=== PATIENT | male | born 1965 | race Caucasian/White ===

== ENCOUNTER → 2016-07-06 | Outpatient (CLI) | payer OTHER ==
[~2016-07-06] MED LIST: ADVIN25050 INH; ADVIN50050 INH; ALBINS NEB; AMLO-110 PO; ASPI1CHW26 PO; CHOLESTEROL MED; CMBIN INH; CZR50 PO; EPP3/2 IM; EZET10TA63 PO; FLX10 PO; HYDR-5688 PO; IPRA1AER2 INH; ISOS30TA3 PO; ISOS60TA25 PO; LISI-725 PO; METO100T44 PO; MOME50SP5 NAE; MOME6000 NAE; NTRGSL/4 UT; OPTIRAY 320 IV PRN; PARO10TA3 PO; PARO1TAB29 PO; PRED20TA2 PO; PREG100C PO; PREG1CAP36 PO; RIZA10TA18 PO; RNXER500 PO; ROSU20TA PO; SIMV20TA2 PO; SIMV80TA2 PO; SNG10 PO; TRAM-10 PO; doxycycline
--- NOTE | 2016-07-06 17:26 | DIAGNOSTIC IMAGING REPORT ---
CT PELVIS W/IV AND ORAL CONT (CT) CT DOSE: 1023.16 mGy.cm CLINICAL HISTORY: K40.90 Left inguinal [id number] Right groin [id number]. TECHNIQUE: The patient was scanned following administration of dilute oral contrast. The patient was scanned in a dynamic helical fashion during intravenous administration 119 cc Optiray 320. COMPARISON STUDY: Ultrasound study dated 06/06/2016 FINDINGS: There is no pathologic bowel dilatation. The inferior aspect of the abdominal aorta is nondilated. There is no evidence of pathologic bowel dilatation. There is no evidence of pathologic adenopathy. There is a tiny fat-containing umbilical hernia. There is no evidence of acute appendicitis. There are small bilateral fat-containing inguinal hernias right larger than left. IMPRESSION: 1. Small fat-containing umbilical hernia 2. Small fat-containing inguinal hernias right greater than left 3. No acute inflammatory changes. 4. No evidence of pathologic adenopathy Electronically signed by: Frank Forman M.D. 07/06/2016 5:24 PM Dictated Date/Time: 07/06/2016 5:21 PM
== END | disposition home or self-care (01) ==
LOC: C.CTS 16:44
PROVIDERS: ATTEND Surgery
DX: K40.90 Unilateral inguinal hernia, without obstruction or gangrene, not specified as recurrent (principal); R10.30 Lower abdominal pain, unspecified

== ENCOUNTER → 2016-08-02 | Outpatient (CLI) | payer OTHER ==
[~2016-08-02] MED LIST changes: -METO100T44 PO; +METO1TAB69 PO; -OPTIRAY 320 IV PRN
--- NOTE | 2016-08-02 14:18 | DIAGNOSTIC IMAGING REPORT ---
TWO VIEW CHEST CLINICAL HISTORY: Cough. FINDINGS: PA and lateral chest radiographs are compared to study dated 01/08/2012. Correlation is made with chest CT dated 09/13/2007. The examination is degraded by large body habitus. The heart is top normal for projection. The mediastinal contour is within normal limits. The lungs and pleural spaces are clear. There is no pneumothorax. The bony thorax appears intact. IMPRESSION: No active disease in the chest. Electronically signed by: Colton Valdivia M.D. 08/02/2016 2:17 PM Dictated Date/Time: 08/02/2016 2:16 PM
== END | disposition home or self-care (01) ==
LOC: C.RAD1850 13:46
PROVIDERS: ATTEND Internal Medicine
DX: R05 Cough (principal)

== ENCOUNTER → 2016-09-04 | Outpatient (CLI) | payer OTHER ==
[2016-09-04 16:03] LABS: HEMATOCRIT 42.8 % (42-52); MEAN CELL VOLUME 81.2 fL (80-100); MEAN CORPUSCULAR HEMOGLOBIN 26.8 pg (25-34); MEAN CORPUSCULAR HGB CONC 32.9 g/dl (32-36); PLATELET COUNT 249 K/uL (130-400); RED BLOOD COUNT 5.27 M/uL (4.7-6.1); WHITE BLOOD COUNT 6.03 K/uL (4.8-10.8)
[2016-09-04 16:53] LABS: AST/SGOT 35 U/L (15-37); BLOOD UREA NITROGEN 10 mg/dl (7-18); BUN/CREATININE RATIO 10.1 (10-20); CALCIUM 9.3 mg/dl (8.5-10.1); CARBON DIOXIDE 25 mmol/L (21-32); CHLORIDE 102 mmol/L (98-107); GLUCOSE 82 mg/dl (70-99); POTASSIUM 3.6 mmol/L (3.5-5.1); SODIUM 140 mmol/L (136-145)
[2016-09-04 16:58] LABS: ALT/SGPT 34 U/L (12-78)
[2016-09-04 19:14] LABS: LYME DISEASE AB IGG NEG (NEG); LYME DISEASE AB IGM NEG (NEG)
== END | disposition home or self-care (01) ==
LOC: C.LAB1850 15:10
PROVIDERS: ATTEND Internal Medicine
DX: R00.2 Palpitations (principal); I10 Essential (primary) hypertension; E78.5 Hyperlipidemia, unspecified; I25.10 Atherosclerotic heart disease of native coronary artery without angina pectoris; Z12.5 Encounter for screening for malignant neoplasm of prostate; T14.8 Other injury of unspecified body region; W57.XXXA Bitten or stung by nonvenomous insect and other nonvenomous arthropods, initial encounter

== ENCOUNTER 2016-12-19 07:24 | Day surgery (SDC) | payer OTHER ==
[2016-12-08 13:37] VITALS: BMI 46.0
--- NOTE | 2016-12-08 14:25 | PAT Medication Instructions ---
Service Date Dec 08, 2016. Current Home Medication List Amlodipine (Norvasc), 5 MG PO QPM Aspirin (Aspirin Adult Low Strengt), 81 MG PO QPM Cyclobenzaprine Hcl (Flexeril *), 10 MG PO HS Epinephrine (Epipen), 0.3 MG IM UD Ezetimibe (Zetia), 10 MG PO QPM Fluticasone Prop/Salmeterol (Advair Diskus 250/50 Mcg *), 1 PUFF INH BID Ipratropium/Albuterol (Combivent *), 2 PUFFS INH QID Isosorbide Mononitrate Ext Rel (Imdur Ext Rel), 45 MG PO QPM Lisinopril (Zestril), 20 MG PO QPM Metoprolol Succ (Toprol Xl) (Toprol-Xl ), 150 MG PO QPM Mometasone Furoate (Nasonex), 2 SPRAY KIMI QPM Montelukast (Singulair *), 10 MG PO QPM Nitroglycerin (Nitrostat), 0.4 MG UT PRN Paroxetine (Paxil), 10 MG PO QPM Pregabalin (Lyrica), 100 MG PO HS Rizatriptan Benzoate (Maxalt), 10 MG PO UD PRN for Migraine Tramadol (Ultram), 50 MG PO HS [Cholesterol Med ], Unknown Dose QPM Medication Instructions For Your Scheduled Surgery - Continue as directed: Nitroglycerin (Nitrostat), 0.4 MG UT PRN Epinephrine (Epipen), 0.3 MG IM UD - Hold the following medications 7 days prior to surgery per surgeon's instructions: Aspirin (Aspirin Adult Low Strengt), 81 MG PO QPM - Hold the following medications 24 hours prior to surgery: Lisinopril (Zestril), 20 MG PO QPM - Take the following medications the morning of surgery with a sip of water OTHERWISE NOTHING TO EAT OR DRINK AFTER MIDNIGHT: Fluticasone Prop/Salmeterol (Advair Diskus 250/50 Mcg *), 1 PUFF INH BID Ipratropium/Albuterol (Combivent *), 2 PUFFS INH QID Rizatriptan Benzoate (Maxalt), 10 MG PO UD PRN for Migraine - Take the following medications as scheduled the night before surgery: Isosorbide Mononitrate Ext Rel (Imdur Ext Rel), 45 MG PO QPM Metoprolol Succ (Toprol Xl) (Toprol-Xl ), 150 MG PO QPM Mometasone Furoate (Nasonex), 2 SPRAY KIMI QPM Paroxetine (Paxil), 10 MG PO QPM Pregabalin (Lyrica), 100 MG PO HS Tramadol (Ultram), 50 MG PO HS [Cholesterol Med ], Unknown Dose QPM Montelukast (Singulair *), 10 MG PO QPM Fluticasone Prop/Salmeterol (Advair Diskus 250/50 Mcg *), 1 PUFF INH BID Ipratropium/Albuterol (Combivent *), 2 PUFFS INH QID Cyclobenzaprine Hcl (Flexeril *), 10 MG PO HS Ezetimibe (Zetia), 10 MG PO QPM Amlodipine (Norvasc), 5 MG PO QPM Rizatriptan Benzoate (Maxalt), 10 MG PO UD PRN for Migraine If you have any questions please call us at [phone] or [phone] or [phone]
[2016-12-08 16:01] LABS: BASO % 0.7 %; BASO ABS # 0.04 K/uL (0-0.2); COMPLETE YES; EOS % 3.3 %; HEMATOCRIT 49.1 % (42-52); IG% 0.3 %; LYMPH % 25.5 %; LYMPH ABS # 1.56 K/uL (1.2-3.4); MEAN CELL VOLUME 80.4 fL (80-100); MEAN CORPUSCULAR HEMOGLOBIN 25.7 pg (25-34); MEAN PLATELET VOLUME 10.3 fL (7.4-10.4); MONO % 8.5 %; NEUT % 61.7 %; PLATELET COUNT 241 K/uL (130-400); RED BLOOD COUNT 6.11 M/uL (4.7-6.1); WHITE BLOOD COUNT 6.12 K/uL (4.8-10.8)
[2016-12-08 16:09] LABS: BUN/CREATININE RATIO 12.3 (10-20); CREATININE 1.2 mg/dl (0.60-1.40); POTASSIUM 4.3 mmol/L (3.5-5.1)
[2016-12-08 17:00] LABS: CALCIUM 9.3 mg/dl (8.5-10.1)
[~2016-12-19] VITALS: Ht 167.6 cm; Wt 129.3 kg
[~2016-12-19 07:24] MED LIST changes: -ADVIN50050 INH; -ALBINS NEB; +CEFAZOLIN 3000 MG/65 ML D5W IV SCH; -CZR50 PO; +DEXAMETHASONE SOD INJ 4 MG/ML VIAL ONE; +FENTANYL CITRATE INJ 50 MCG/1 ML 2 ML VIAL ONE; +HEPARIN SOD 5000 UNIT/0.5 ML CARP SQ SCH; -HYDR-5688 PO; -IPRA1AER2 INH; -ISOS60TA25 PO; +LACTATED RINGER'S 1000ML 1,000 ML IV SCH; +LIDOCAINE HCL 2% 2 ML VIAL (20MG/ML) ONE; +METO100T44 PO; -METO1TAB69 PO; +MIDAZOLAM HCL 1 MG/ML 2ML VIAL ONE; -MOME6000 NAE; +ONDANSETRON INJ 2 MG/ML 2 ML VIAL ONE; -PARO10TA3 PO; -PRED20TA2 PO; -PREG1CAP36 PO; +PROPOFOL IV EMULSION 10 MG/ML 20 ML VIAL IV ONE; -RNXER500 PO; +ROCURONIUM BROMIDE 10 MG/ML 5 ML VIAL ONE; -ROSU20TA PO; -SIMV20TA2 PO; -SIMV80TA2 PO; -doxycycline
[2016-12-19] MEDS ORDERED: ATROPINE SULFATE 0.1 MG/ML 5ML SYR IV PRN (07:45)
[2016-12-19] MEDS ORDERED: HYDROmorphone INJ 1 MG/ML SYR IV PRN (07:45)
[2016-12-19] MEDS ORDERED: EpHEDrine SULFATE INJ 50 MG/ML AMP IV PRN (07:45)
[2016-12-19] MEDS ORDERED: FENTANYL CITRATE INJ 50 MCG/1 ML 2 ML VIAL IV PRN (07:45)
[2016-12-19] MEDS ORDERED: ONDANSETRON INJ 2 MG/ML 2 ML VIAL IV PRN ×2 (07:45→10:30)
[2016-12-19] MEDS ORDERED: SIMV20TA2 PO (07:49)
[2016-12-19 07:51] VITALS: BP 144/95; PULSE 61; TEMP 36.6; O2SAT 95; Ht 167.6 cm; Wt 129.3 kg
[2016-12-19 08:12] VITALS: PULSE 61; O2SAT 95
[2016-12-19] MEDS ORDERED: ALBUT/IPRATROP 3MG/0.5MG NEB 3 ML VIAL INH ONE ×2 (08:15→10:30)
[2016-12-19] MEDS ORDERED: SUCCINYLCHOLINE CHLORIDE 20 MG/ML 10 ML VIAL IV ONE (08:19)
[2016-12-19] MEDS ORDERED: PROPOFOL IV EMULSION 10 MG/ML 20 ML VIAL IV ONE (08:19)
[2016-12-19] MEDS ORDERED: SIMV80TA2 PO (08:22)
[2016-12-19] MEDS ORDERED: doxycycline (08:23)
[2016-12-19] MEDS ORDERED: BUPIVACAINE 0.5 % 5 MG/1 ML MPF 30ML VIAL ONE (08:38)
[2016-12-19] MEDS ORDERED: BUPIVACAINE/EPINEPHRINE 0.5% MPF 1:200,000 30 ML VIAL ONE (08:46)
--- NOTE | 2016-12-19 08:48 | History & Physical Bridge Note ---
H&P Re-Evaluation Bridge Note: I have examined the patient, reviewed the History & Physical and in the interval since the performance of the History & Physical I have noted the following changes of clinical significance: No changes noted
[2016-12-19] MEDS ORDERED: HYDR-5688 PO (08:56)
--- NOTE | 2016-12-19 09:02 | Discharge Instructions ---
Discharge Instructions Date of Service Dec 19, 2016. Visit Reason for Visit: Left Inguinal Hernia Discharge Discharge Diagnosis / Problem: laparoscopic hernia repair Discharge Goals Goal(s): Decrease discomfort Activity Recommendations Activity Limitations: as noted below Lifting Limitations: no more than 10 pounds Shower/Bathe: no limitations Driving or Machine Use: resume 3 days after discharge Anesthesia . Post Anesthesia Instructions: If you have had General Anesthesia or IV Sedation: * Do not drive today. * Resume driving when surgeon permits. * Do not make important decisions or sign legal documents today. * Call surgeon for: 1. Temperature elevations greater than 101 degrees F. 2. Uncontrollable pain. 3. Excessive bleeding. 4. Persistent nausea and vomiting. 5. Medication intolerance (nausea, vomiting or rash). * For nausea and vomiting use only clear liquids such as: tea, soda, bouillon until nausea subsides, then gradually increase diet as tolerated. * If you have any concerns or questions, call your surgeon's office. If physician is unavailable and it is an emergency, call 911 or go to the nearest emergency room. . Instructions / Follow-Up Instructions / Follow-Up Dr. Godoy in 2 weeks, call [phone] for any questions Diet Recommendations Recommended Home Diet: no limitations Pending Studies Studies pending at discharge: no Medical Emergencies . Who to Call and When: Medical Emergencies: If at any time you feel your situation is an emergency, please call 911 immediately. . Non-Emergent Contact Non-Emergency issues call your: Surgeon Call Non-Emergent contact if: you have a fever, temperature is above 101.5, your pain is not controlled, wound has increased pain, you have any medication questions . . "Provider Documentation" section prepared by Rj Buckley. .
[2016-12-19] MEDS ORDERED: DEXAMETHASONE SOD INJ 4 MG/ML VIAL ONE (09:33)
[2016-12-19] MEDS ORDERED: ALBUTEROL HFA INHALER 8.5 GM INH ONE (09:59)
--- NOTE | 2016-12-19 10:11 | [facility] Operative Report ---
Operative Report Operative Date Dec 19, 2016. Pre-Operative Diagnosis Bilateral inginal hernias and umbilical hernia Post-Operative Diagnosis umbilical hernia; LLQ adhesions Procedure(s) Performed laparoscopy, repair of umbilical hernia; enterolysis Surgeon Dr. Jason Godoy Engineering Clerk Surgeon(s) Rj Buckley and Deb James Estimated Blood Loss 5 ml Findings 1 cm umbilical hernia; LLQ adhesions. no evidence of right or left inguinal hernia Specimens None per Surgeon Anesthesia get Complication(s) None Disposition Recovery Room / PACU I attest to the content of the Intraoperative Record and any orders documented therein. Any exceptions are noted below.
[2016-12-19] MEDS ORDERED: LACTATED RINGER'S 1000ML 1,000 ML IV SCH (10:19)
[2016-12-19 10:29] VITALS: PULSE 60; O2SAT 96
[2016-12-19] MEDS ORDERED: GLYCOPYRROLATE INJ 0.2 MG/ML VIAL ONE (10:29)
[2016-12-19] MEDS ORDERED: NEOSTIGMINE METHYLSULFATE 5 MG/5 ML SYR ONE (10:29)
[2016-12-19] MEDS ORDERED: HYDROCODONE/ACETAMOPHEN 5/325MG TAB PO PRN (10:30)
--- NOTE | 2016-12-19 11:04 | Anesthesiology Progress Note ---
Anesthesia Post Op Note Date & Time Dec 19, 2016 at 10:59 Vital Signs Pain Intensity: 0 Vital Signs Past 12 Hours Date Time Temp Pulse Resp B/P (MAP) Pulse Ox O2 Delivery O2 Flow Rate FiO2 12/19/16 10:55 62 16 124/78 98 Oxymask 3 12/19/16 10:45 66 18 119/82 98 Oxymask 3 12/19/16 10:35 59 18 114/82 97 High Flow Oxygen 10 12/19/16 10:29 60 16 96 Mask 10.0 12/19/16 10:25 65 18 113/79 92 Oxymask 10 12/19/16 10:18 36.0 65 18 142/101 94 Oxymask 10 12/19/16 08:12 61 16 95 Room Air 12/19/16 07:51 36.6 61 18 144/95 (111) 95 Room Air Notes Mental Status: alert / awake / arousable, participated in evaluation Pt Amnestic to Procedure: Yes Nausea / Vomiting: adequately controlled Pain: adequately controlled Airway Patency, RR, SpO2: stable & adequate BP & HR: stable & adequate Hydration State: stable & adequate Anesthetic Complications: no major complications apparent The patient is a 51 y/o male with a h/o HTN, OR, CAD, DLD, TIA, MADONNA on CPAP, COPD Asthma and morbid obesity s/p hernia repair with Dr. Godoy. The patient did not take any of his inhalers this morning. His lungs were clear to auscultation preoperatively. He was given a Duoneb preop prophylactically. He did well intraoperatively. In recovery, he had some mild end expiratory wheezing for which he was given another Duoneb. His lungs were clear after the treatment. He was also given an incentive spirometer to use. He is breathing comfortably with no complaints saturating 98% on 3L oximask. He was instructed to wear his CPAP for at least the next 24 hours whenever he thinks he may fall asleep even if just to nap and also while he is on pain medications. He understands and agrees.
[2016-12-19 11:10] VITALS: BP 136/80; PULSE 60; TEMP 36.9; O2SAT 94
--- NOTE | 2016-12-19 11:23 | OPERATIVE REPORT ---
DATE OF OPERATION: 12/19/2016 PREOPERATIVE DIAGNOSIS: Umbilical hernia and bilateral inguinal hernias with left lower quadrant pain. POSTOPERATIVE DIAGNOSIS: Umbilical hernia. No evidence of right or left inguinal hernia and left lower quadrant adhesions. PROCEDURES PERFORMED: Laparoscopy with enterolysis and repair of umbilical hernia. SURGEON: Dr. Godoy. STAIN APPLICATOR: Camron Buckley PA-C and Deb James PA-C. ESTIMATED BLOOD LOSS: 5 mL. COMPLICATIONS: No immediate. ANESTHESIA: General. The patient tolerated the procedure well. OPERATION AND FINDINGS: OPERATIVE NOTE: After informed consent was obtained, the patient was taken to the operating suite, placed in supine position. After successful intubation a Solano catheter was placed and the abdomen was shaved and sterilely prepped and draped in usual fashion. A periumbilical incision was made with an 11 blade scalpel and carried down through the soft tissue using electrocautery. We did encounter an approximately 1 cm umbilical hernia. There was nothing incarcerated within it. We were able to open the hernia sac and place my finger into the abdominal cavity and perform a finger sweep. We put the 12 mm Abbi trocar directly through the hernia. We did place 0 Vicryl stay sutures on the fascial edges. We insufflated the abdomen to 20 mmHg. I inserted the camera and we began examining. I placed initially 2 right mid abdominal 5 mm trocars under direct vision. We began by looking in the right lower quadrant. The inguinal canal was completely intact. There was no evidence of any hernia whatsoever. When we looked in the left lower quadrant there were some adhesions stuck to the area of the inguinal canal. This primarily involved the large bowel. I was able to use traction, counter traction and Harmonic scalpel to take down these adhesions. Once these were down once again there was no evidence of direct femoral or indirect inguinal hernia. I did open the peritoneum to better inspect this looking for cord lipoma, etc., since this is where his pain was and even after opening the peritoneum there was no evidence of any inguinal hernia. I reapproximated the peritoneum, took a final look around the entire abdomen and saw no other abnormalities. We removed all the trocars and desufflated the abdomen. Because of the umbilical hernia was less than 2 cm I used an 0 Ethibond with interrupted [id number] sutures to repair the umbilical hernia primarily. I did not see the need for mesh onlay. We thoroughly irrigated all the wounds and closed the skin using 4-0 Monocryl. Marcaine was injected around them for postoperative analgesia and skin glue was used as a dressing. The patient was awakened, extubated, and transferred to recovery in stable condition. I attest to the content of the Intraoperative Record and any orders documented therein. Any exception s are noted below.
[2016-12-19 11:40] VITALS: BP 131/75; PULSE 65; TEMP 36.9; O2SAT 95
== END 2016-12-19 12:25 | disposition home or self-care (01) ==
LOC: C.ACU 07:24
PROVIDERS: ATTEND Surgery
DX: K42.9 Umbilical hernia without obstruction or gangrene (principal); I10 Essential (primary) hypertension; E78.5 Hyperlipidemia, unspecified; G47.33 Obstructive sleep apnea (adult) (pediatric); J45.909 Unspecified asthma, uncomplicated; J44.9 Chronic obstructive pulmonary disease, unspecified; M19.90 Unspecified osteoarthritis, unspecified site; Z86.73 Personal history of transient ischemic attack (TIA), and cerebral infarction without residual deficits; I25.2 Old myocardial infarction; I25.10 Atherosclerotic heart disease of native coronary artery without angina pectoris; Z88.5 Allergy status to narcotic agent; Z79.82 Long term (current) use of aspirin; E66.9 Obesity, unspecified; Z68.42 Body mass index [BMI] 45.0-49.9, adult; Z80.1 Family history of malignant neoplasm of trachea, bronchus and lung; Z80.42 Family history of malignant neoplasm of prostate; Z83.3 Family history of diabetes mellitus; Z82.49 Family history of ischemic heart disease and other diseases of the circulatory system; Z82.3 Family history of stroke

== ENCOUNTER 2017-01-19 18:28 | Emergency (ER) | payer OTHER ==
[~2017-01-19] VITALS: Ht 167.6 cm; Wt 133.5 kg
[~2017-01-19 18:28] MED LIST changes: -CEFAZOLIN 3000 MG/65 ML D5W IV SCH; -CHOLESTEROL MED; -DEXAMETHASONE SOD INJ 4 MG/ML VIAL ONE; -FENTANYL CITRATE INJ 50 MCG/1 ML 2 ML VIAL ONE; -HEPARIN SOD 5000 UNIT/0.5 ML CARP SQ SCH; +HYDR-5688 PO; -LACTATED RINGER'S 1000ML 1,000 ML IV SCH; -LIDOCAINE HCL 2% 2 ML VIAL (20MG/ML) ONE; -LISI-725 PO; -METO100T44 PO; +METO1TAB69 PO; -MIDAZOLAM HCL 1 MG/ML 2ML VIAL ONE; -ONDANSETRON INJ 2 MG/ML 2 ML VIAL ONE; -PROPOFOL IV EMULSION 10 MG/ML 20 ML VIAL IV ONE; -ROCURONIUM BROMIDE 10 MG/ML 5 ML VIAL ONE; +SIMV80TA2 PO; +doxycycline
[2017-01-19 18:30] VITALS: TEMP 36.9; Ht 167.6 cm; Wt 133.5 kg
--- NOTE | 2017-01-19 18:52 | EMERGENCY ROOM VISIT NOTE ---
History First contact with patient: 18:35 Chief Complaint: SHORTNESS OF BREATH Stated Complaint: CHEST PRESSURE,TINGLING/NUMBNESS IN ARMS/LEGS Nursing Triage Summary: Patient states "I had hernia surgery about 2-3 weeks ago. I started having some trouble breathing and a cough before the surgery. I was given a breathing treatment before, during and after my surgery because the oxygen level kept dropping. The shortness of breath has been getting worse and my home nebulizer isn't helping. They told me to come here to be checked for a blood clot. I feel lightheaded. I have numbness in my left tongue, arm and leg that started on the way here." History of Present Illness The patient is a 51 year old male who presents to the Emergency Room with complaints of cough and shortness of breath. The patient states that he has had multiple fits of coughing today and felt like he was going to pass out after one of these fits. He states that his arms and legs went numb as well. The patient states that he has been coughing for "a while." He has been using nebulizers at home without relief. His significant other states that his oxygen saturations have been in the low 90s after nebulizer treatments. The patient states he had a hernia surgery a few weeks ago performed by Dr. Godoy. He does have a history of asthma. He is not a smoker but does state he has had a blood clot in the past. He denies any chest pain or abdominal pain. He denies any nausea or vomiting. He denies any hemoptysis. Review of Systems A complete 10 point review of systems was reviewed with the patient with pertinent positives and negatives as per history of present illness. All else were negative. Social History Smoking Status: Never Smoker Occupation Status: disabled Current/Historical Medications Scheduled Amlodipine (Norvasc), 5 MG PO QPM Aspirin (Aspirin Adult Low Strengt), 81 MG PO QPM Cyclobenzaprine HCl (Cyclobenzaprine HCl), 10 MG PO HS Epinephrine (Epipen), 0.3 MG IM UD Ezetimibe (Zetia), 10 MG PO QPM Fluticasone Prop/Salmeterol (Advair Diskus 500-50 Mcg/Dose), 1 PUFF INH BID Ipratropium-Albuterol (Combivent Respimat), 1 PUFFS INH QID Isosorbide Mononitrate Ext Rel (Imdur Ext Rel), 60 MG PO QPM Losartan Potassium (Losartan Potassium), 50 MG PO DAILY Metoprolol Succ (Toprol Xl) (Toprol-Xl ), 100 MG PO QPM Mometasone Furoate (Nasal) (Mometasone Furoate), 1-2 SPRAY KIMI DAILY Montelukast Sod (Montelukast Sodium), 10 MG PO QPM Nitroglycerin (Nitrostat), 0.4 MG UT PRN Paroxetine HCl (Paroxetine), 10 MG PO QPM Prednisone (Prednisone Tab), 3 TAB PO DAILY Pregabalin (Lyrica), 25 MG PO HS Ranolazine (Ranexa), 500 MG PO Q12 Simvastatin (Zocor), 80 MG PO QPM Tramadol (Ultram), 50 MG PO HS Scheduled PRN Albuterol Sulf (Albuterol Sulfate), 2.5 MG NEB Q4 PRN for Wheezing Hydrocodone/Acetaminophen 5MG/325MG ([place] 5MG/325MG), 1-2 TABLET PO Q4H PRN for Pain Physical Exam Vital Signs Date Time Temp Pulse Resp B/P (MAP) Pulse Ox O2 Delivery O2 Flow Rate FiO2 01/19/17 21:40 80 21 151/67 96 Room Air 01/19/17 20:10 60 22 116/71 98 Nasal Cannula 4.0 01/19/17 20:07 78 22 139/87 97 Room Air 01/19/17 18:42 93 Room Air 01/19/17 18:30 36.9 77 22 141/76 93 Room Air Physical Exam VITALS: Vitals are noted on the nurse's note and reviewed by myself. Vital signs stable. GENERAL: This is a 51-year-old obese male, in no acute distress, nondiaphoretic. HEENT: Normocephalic. PERRLA. EOMI. Mucous membranes moist. Neck is supple without nuchal rigidity. HEART: Regular rate and rhythm without murmurs gallops or rubs. LUNGS: Clear to auscultation bilaterally without wheezes, rales or rhonchi. No retractions or accessory muscle use. ABDOMEN: Well-healing surgical scars over the umbilicus and right side of the abdomen consistent with laparoscopic surgery. No tenderness to palpation. NEURO: Patient was alert and oriented to person place and time. Medical Decision & Procedures ER Provider Diagnostic Interpretation: CT ANGIOGRAM OF THE CHEST IMPRESSION: 1. No evidence of acute pulmonary embolism (study limited due to respiratory motion artifact) 2. No evidence of focal pulmonary consolidation 3. Scattered subcentimeter solid and mixed solid and groundglass pulmonary nodules, the largest of which measures 5 mm. 3-6 month follow-up CT scanning is recommended. Laboratory Results 01/19/17 19:14 Red Blood Count 5.28, Mean Corpuscular Volume 80.3, Mean Corpuscular Hemoglobin 26.1, Mean Corpuscular Hemoglobin Concent 32.5, Mean Platelet Volume 9.7, Neutrophils (%) (Auto) 57.3, Lymphocytes (%) (Auto) 26.8, Monocytes (%) (Auto) 8.6, Eosinophils (%) (Auto) 6.3, Basophils (%) (Auto) 0.7, Neutrophils # (Auto) 3.91, Lymphocytes # (Auto) 1.83, Monocytes # (Auto) 0.59, Eosinophils # (Auto) 0.43, Basophils # (Auto) 0.05 01/19/17 19:14 Test 01/19/17 19:14 White Blood Count 6.83 K/uL (4.8-10.8) Red Blood Count 5.28 M/uL (4.7-6.1) Hemoglobin 13.8 g/dL (14.0-18.0) Hematocrit 42.4 % (42-52) Mean Corpuscular Volume 80.3 fL (80-100) Mean Corpuscular Hemoglobin 26.1 pg (25-34) Mean Corpuscular Hemoglobin Concent 32.5 g/dl (32-36) Platelet Count 218 K/uL (130-400) Mean Platelet Volume 9.7 fL (7.4-10.4) Neutrophils (%) (Auto) 57.3 % Lymphocytes (%) (Auto) 26.8 % Monocytes (%) (Auto) 8.6 % Eosinophils (%) (Auto) 6.3 % Basophils (%) (Auto) 0.7 % Neutrophils # (Auto) 3.91 K/uL (1.4-6.5) Lymphocytes # (Auto) 1.83 K/uL (1.2-3.4) Monocytes # (Auto) 0.59 K/uL (0.11-0.59) Eosinophils # (Auto) 0.43 K/uL (0-0.5) Basophils # (Auto) 0.05 K/uL (0-0.2) RDW Standard Deviation 42.2 fL (36.4-46.3) RDW Coefficient of Variation 14.6 % (11.5-14.5) Immature Granulocyte % (Auto) 0.3 % Immature Granulocyte # (Auto) 0.02 K/uL (0.00-0.02) Prothrombin Time 10.7 SECONDS (9.0-12.0) Prothromb Time International Ratio 1.0 (0.9-1.1) Activated Partial Thromboplast Time 31.5 SECONDS (21.0-31.0) Partial Thromboplastin Ratio 1.2 Anion Gap 6.0 mmol/L (3-11) Est Creatinine Clear Calc Drug Dose 88.1 ml/min Estimated GFR () 73.7 Estimated GFR (Non- 63.6 BUN/Creatinine Ratio 12.1 (10-20) Calcium Level 8.6 mg/dl (8.5-10.1) Total Bilirubin 0.5 mg/dl (0.2-1) Aspartate Amino Transf (AST/SGOT) 30 U/L (15-37) Alanine Aminotransferase (ALT/SGPT) 32 U/L (12-78) Alkaline Phosphatase 74 U/L (45-117) Troponin I < 0.015 ng/ml (0-0.045) Total Protein 7.6 gm/dl (6.4-8.2) Albumin 3.9 gm/dl (3.4-5.0) Globulin 3.7 gm/dl (2.5-4.0) Albumin/Globulin Ratio 1.1 (0.9-2) Medications Administered Medications (Trade) Dose Ordered Sig/Christine Route Start Time Stop Time Status Last Admin Dose Admin Prednisone (PredniSONE TAB) 60 mg NOW STAT PO 01/19/17 21:33 01/19/17 21:35 DC 01/19/17 21:51 60 MG ED Course The patient was evaluated as above. Labs were drawn and IV access was obtained. CT scan of the chest was performed and read by radiology as above. Patient was reevaluated and findings were discussed. He will be placed on prednisone. He was given an initial dose of 60 mg in the emergency department. Discharge instructions were reviewed with the patient. The patient verbalized understanding of my assessment and treatment plan and was discharged home in good condition. Medical Decision Differential diagnosis includes pulmonary embolism, pneumonia, atelectasis, URI , among others. The patient is a 51-year-old male who presents today complaining of shortness of breath. The patient does have extensive history of asthma, but is concerned today because he recently had surgery and was told he could have a blood clot in the lungs. Labs revealed no leukocytosis, anemia or concerning electrolyte abnormalities. CT of the chest was performed and did not show evidence of pulmonary embolism, but did show multiple nodules. Patient will be placed on prednisone for presumed flareup of his chronic asthma. He need follow-up with his primary care provider for repeat imaging in the future and for recheck of his condition. Patient was afebrile and oxygen saturations were within normal limits. He was instructed to return here for any worsening of his current condition. Based on the patient's presentation and work up, I feel the patient is stable for outpatient treatment. The patient was educated to return to the emergency department for any worsening of their current condition or new/concerning symptoms. He will follow up with his PCP. Medication Reconcilliation Current Medication List: was personally reviewed by me Blood Pressure Screening Patient's blood pressure: Elevated blood pressure Blood pressure disposition: Elevated BP felt to be situational Impression Primary Impression: Shortness of breath Departure Information Dispostion Home / Self-Care Condition GOOD Prescriptions Prednisone (Prednisone Tab) 20 Mg Tab 3 TAB PO DAILY for 4 Days, #12 TAB FOR 4 DAYS Prov: Terese Du ., MILO 01/19/17 Referrals RV. Rock MD (PCP) Patient Instructions [facility] Additional Instructions Prednisone as prescribed. Continue your nebulizer treatments as needed. Follow-up with your primary care provider this week. Return to the emergency department with worsening shortness of breath, worsening chest pain, or any other new/concerning symptoms.
[2017-01-19] MEDS ORDERED: OPTIRAY 320 IV PRN (19:00)
[2017-01-19] MEDS ORDERED: RNXER500 PO (19:19)
[2017-01-19] MEDS ORDERED: PREG1CAP36 PO (19:19)
[2017-01-19] MEDS ORDERED: FLX10 PO (19:19)
[2017-01-19] MEDS ORDERED: MOME6000 NAE (19:19)
[2017-01-19] MEDS ORDERED: ADVIN50050 INH (19:19)
[2017-01-19] MEDS ORDERED: PARO10TA3 PO (19:19)
[2017-01-19] MEDS ORDERED: ALBINS NEB (19:19)
[2017-01-19] MEDS ORDERED: CZR50 PO (19:19)
[2017-01-19] MEDS ORDERED: SNG10 PO (19:19)
[2017-01-19] MEDS ORDERED: ISOS60TA25 PO (19:19)
[2017-01-19] MEDS ORDERED: IPRA1AER2 INH (19:19)
[2017-01-19 19:25] LABS: BASO % 0.7 %; BASO ABS # 0.05 K/uL (0-0.2); COMPLETE YES; EOS % 6.3 %; HEMATOCRIT 42.4 % (42-52); IG% 0.3 %; LYMPH % 26.8 %; LYMPH ABS # 1.83 K/uL (1.2-3.4); MEAN CELL VOLUME 80.3 fL (80-100); MEAN CORPUSCULAR HEMOGLOBIN 26.1 pg (25-34); MEAN CORPUSCULAR HGB CONC 32.5 g/dl (32-36); MEAN PLATELET VOLUME 9.7 fL (7.4-10.4); MONO % 8.6 %; NEUT % 57.3 %; PLATELET COUNT 218 K/uL (130-400); RED BLOOD COUNT 5.28 M/uL (4.7-6.1); WHITE BLOOD COUNT 6.83 K/uL (4.8-10.8)
[2017-01-19] MEDS ORDERED: EZET10TA63 PO (19:33)
[2017-01-19 19:35] LABS: PARTIAL THROMBOPLASTIN RATIO 1.2; PROTHROMBIN TIME (PATIENT) 10.7 SECONDS (9.0-12.0)
[2017-01-19 19:47] LABS: ALT/SGPT 32 U/L (12-78); BLOOD UREA NITROGEN 16 mg/dl (7-18); BUN/CREATININE RATIO 12.1 (10-20); CALCIUM 8.6 mg/dl (8.5-10.1); CARBON DIOXIDE 27 mmol/L (21-32); CHLORIDE 105 mmol/L (98-107); GLUCOSE 88 mg/dl (70-99); POTASSIUM 3.8 mmol/L (3.5-5.1); SODIUM 138 mmol/L (136-145)
[2017-01-19 19:52] LABS: ALB/GLOB RATIO 1.1 (0.9-2); ALKALINE PHOSPHATASE 74 U/L (45-117); AST/SGOT 30 U/L (15-37)
[2017-01-19] MEDS ORDERED: PRED20TA2 PO (21:36)
[2017-01-19 21:40] VITALS: BP 151/67; PULSE 80; O2SAT 96
--- NOTE | 2017-01-19 21:49 | DIAGNOSTIC IMAGING REPORT ---
CT ANGIOGRAM OF THE CHEST CLINICAL HISTORY: Cough, shortness of breath COMPARISON STUDY: 09/13/2007 TECHNIQUE: Following the IV administration of 92 mL of Optiray-320, CT angiogram of the thorax was performed from the thoracic inlet to the lung bases utilizing the pulmonary embolus protocol. Images are reviewed in the axial, sagittal, and coronal planes. IV contrast was administered without complication. MIP imaging was performed. A dose lowering technique was utilized adhering to the principles of ALARA. CT DOSE: 684.18 mGy.cm FINDINGS: No pathologically enlarged axillary mediastinal or hilar lymph nodes were visualized. There was no evidence of thoracic aortic dilatation. The examination is limited due to respiratory motion artifact. No pulmonary emboli are visualized. No pleural effusions are visualized. There was no evidence of focal pulmonary consolidation. There is a 3 mm right middle lobe solid nodule as visualized in image #134/266. There is a 4 mm mixed groundglass and solid right upper lobe pulmonary nodule as visualized in image #165/266. There is a 4 mm solid right upper lobe pulmonary nodule as visualized in image #205/266. There is a 2.5 mm mixed solid and groundglass left apical pulmonary nodule as visualized in image #215/266. There are small clustered right upper lobe nodules the largest of which measures 5 mm as visualized in image #177/260. These nodules are not visualized the prior August 2007 study. An inflammatory over neoplastic etiology is favored. IMPRESSION: 1. No evidence of acute pulmonary embolism (study limited due to respiratory motion artifact) 2. No evidence of focal pulmonary consolidation 3. Scattered subcentimeter solid and mixed solid and groundglass pulmonary nodules, the largest of which measures 5 mm. 3-6 month follow-up CT scanning is recommended. Please refer to below summary of Fleischner criteria recommendations for follow-up of incidental CT nodules (Majo Nash, Guidelines for management of small pulmonary nodules detected on CT scans: A statement from the Fleischner Society, Radiology 237: [phone].) SOLID NODULES Solitary nodule size: <6 mm * low risk patients: no follow-up needed * high risk patients: optional CT at 12 months Solitary nodule size: 6-8 mm * low risk patients: follow-up at 6-12 months, then consider further follow-up at 18-24 months * high risk patients: initial follow-up CT at 6-12 months and then at 18-24 months if no change Solitary nodule size: >8 mm * either low or high risk patients - consider follow-up CT at 3 months, and/or CT-PET, and/or biopsy Multiple nodules size: <6 mm * low risk patients: no routine follow-up * high risk patients: optional CT at 12 months Multiple nodules size: 6-8 mm * low risk patients: follow-up at 3-6 months, then consider further follow-up at 18-24 months * high risk patients: follow-up at 3-6 months, then at 18-24 months if no change Multiple nodules size: >8 mm * low risk patients: follow-up at 3-6 months, then consider further follow-up at 18-24 months * high risk patients: follow-up at 3-6 months, then at 18-24 months if no change Note: newly detected indeterminate nodule in persons 35 years of age or older. * low risk patients: minimal or absent history of smoking and/or other known risk factors * high risk patients: history of smoking or of other known risk factors (e.g. first degree relative with lung cancer, or exposure to asbestos, radon, uranium) * if a nodule up to 8 mm is partly solid or is ground glass further follow-up is required after 24 months to exclude possible slow growing adenocarcinoma (TAM) SUBSOLID NODULES Solitary pure ground-glass nodule * nodule size <6 mm - no CT follow-up required * nodule size >=6 mm - follow-up CT at 6-12 months, then every 2 years until 5 years Solitary part-solid nodule * nodule size <6 mm - no CT follow-up required * nodule size >=6 mm - follow-up CT at 3-6 months. If unchanged, and solid component remains <6 mm, then annual follow-up for 5 years Multiple subsolid nodules * nodule size <6 mm - follow-up CT at 3-6 months, consider further follow-up at 2 and 4 years if stable * nodule size >=6 mm - follow-up CT at 3-6 months, subsequent management based on the most suspicious nodule(s) Electronically signed by: Frank Forman M.D. 01/19/2017 9:47 PM Dictated Date/Time: 01/19/2017 8:18 PM
== END 2017-01-19 22:03 | disposition home or self-care (01) ==
LOC: C.EDB 18:29
DX: R06.02 Shortness of breath (principal); Z79.82 Long term (current) use of aspirin; Z79.899 Other long term (current) drug therapy

== ENCOUNTER → 2017-02-22 | Outpatient (CLI) | payer OTHER ==
[~2017-02-22] MED LIST changes: -ADVIN25050 INH; +ADVIN50050 INH; +ALBINS NEB; -CMBIN INH; +CZR50 PO; +IPRA1AER2 INH; -ISOS30TA3 PO; +ISOS60TA25 PO; -MOME50SP5 NAE; +MOME6000 NAE; +PARO10TA3 PO; -PARO1TAB29 PO; -PREG100C PO; +PREG1CAP36 PO; -RIZA10TA18 PO; +RNXER500 PO; -doxycycline
== END | disposition home or self-care (01) ==
LOC: C.LAB1850 15:08
PROVIDERS: ATTEND Internal Medicine
DX: R97.20 Elevated prostate specific antigen [PSA] (principal)

== ENCOUNTER → 2017-03-26 | Outpatient (CLI) | payer OTHER ==
[2017-03-26 16:22] LABS: HEMATOCRIT 43.1 % (42-52); MEAN CELL VOLUME 81.9 fL (80-100); MEAN CORPUSCULAR HGB CONC 32.9 g/dl (32-36); MEAN PLATELET VOLUME 10.2 fL (7.4-10.4); PLATELET COUNT 233 K/uL (130-400); RED BLOOD COUNT 5.26 M/uL (4.7-6.1); WHITE BLOOD COUNT 6.74 K/uL (4.8-10.8)
[2017-03-26 16:45] LABS: ALT/SGPT 28 U/L (12-78); AST/SGOT 21 U/L (15-37); BLOOD UREA NITROGEN 14 mg/dl (7-18); BUN/CREATININE RATIO 12.9 (10-20); CALCIUM 9.1 mg/dl (8.5-10.1); CARBON DIOXIDE 27 mmol/L (21-32); CHLORIDE 106 mmol/L (98-107); CHOLESTEROL 159 mg/dl (0-200); GLUCOSE 83 mg/dl (70-99); POTASSIUM 3.9 mmol/L (3.5-5.1); SODIUM 143 mmol/L (136-145); TRIGLYCERIDES 180 mg/dl (0-150); VERY LOW DENSITY LIPOPROT CALC 36 mg/dl
[2017-03-26 16:48] LABS: CHOLESTEROL/HDL RATIO 3.5; HDL CHOLESTEROL 46 mg/dl; LDL CHOLESTEROL CALCULATED 77 mg/dl
== END | disposition home or self-care (01) ==
LOC: C.LAB1850 14:41
PROVIDERS: ATTEND Internal Medicine Cardiovascular Disease
DX: R00.2 Palpitations (principal); I10 Essential (primary) hypertension; E78.5 Hyperlipidemia, unspecified; I25.10 Atherosclerotic heart disease of native coronary artery without angina pectoris

== ENCOUNTER → 2017-05-21 | Outpatient (CLI) | payer OTHER ==
[~2017-05-21] MED LIST changes: +METO100T44 PO; -METO1TAB69 PO
--- NOTE | 2017-05-21 15:20 | DIAGNOSTIC IMAGING REPORT ---
TWO VIEW CHEST CLINICAL HISTORY: Asthma. Cough and dyspnea. FINDINGS: PA and lateral chest radiographs are compared to study dated 08/02/2016 and correlated with chest CT dated 01/19/2017. The examination is degraded by large body habitus, and by apical lordotic positioning on the PA view. The cardiomediastinal silhouette is top normal for projection. The pulmonary vasculature is noncongested. The lungs and pleural spaces are clear. There is no pneumothorax. The bony thorax appears intact. IMPRESSION: No acute cardiopulmonary abnormality. Electronically signed by: Colton Valdivia M.D. 05/21/2017 3:18 PM Dictated Date/Time: 05/21/2017 3:17 PM
== END | disposition home or self-care (01) ==
LOC: C.RAD1850 14:51
PROVIDERS: ATTEND Nurse Practitioner Adult Health
DX: J45.909 Unspecified asthma, uncomplicated (principal); R05 Cough; R06.02 Shortness of breath

== ENCOUNTER 2017-07-31 09:47 | Day surgery (SDC) | payer OTHER ==
[2017-07-30 09:10] VITALS: BMI 46.0
--- NOTE | 2017-07-30 09:48 | PAT Medication Instructions ---
Service Date Jul 30, 2017. Current Home Medication List Albuterol Sulf (Albuterol Sulfate), 2.5 MG NEB Q4 PRN for Wheezing Amlodipine (Norvasc), 5 MG PO QPM Aspirin (Aspirin Adult Low Strengt), 81 MG PO QPM Cyclobenzaprine HCl (Cyclobenzaprine HCl), 10 MG PO HS Fluticasone Prop/Salmeterol (Advair Diskus 500-50 Mcg/Dose), 1 PUFF INH BID Ipratropium-Albuterol (Combivent Respimat), 1 PUFFS INH QID PRN for PRN Isosorbide Mononitrate Ext Rel (Imdur Ext Rel), 60 MG PO QPM Losartan Potassium (Losartan Potassium), 50 MG PO QPM Metoprolol Succ (Toprol Xl) (Toprol-Xl ), 100 MG PO QPM Montelukast Sod (Montelukast Sodium), 10 MG PO QPM Nitroglycerin (Nitrostat), 0.4 MG UT PRN Paroxetine HCl (Paroxetine), 10 MG PO QPM Pregabalin (Lyrica), 25 MG PO HS Ranolazine (Ranexa), 500 MG PO QPM Simvastatin (Zocor), 80 MG PO QPM Tramadol (Ultram), 50 MG PO HS Medication Instructions For Your Scheduled Surgery - Hold the following medications 24 hours prior to surgery: Losartan Potassium (Losartan Potassium), 50 MG PO QPM - Take the following medications the morning of surgery with a sip of water: Nitroglycerin (Nitrostat), 0.4 MG UT PRN (if needed) Ipratropium-Albuterol (Combivent Respimat), 1 PUFFS INH QID PRN for PRN (if needed) Fluticasone Prop/Salmeterol (Advair Diskus 500-50 Mcg/Dose), 1 PUFF INH BID Albuterol Sulf (Albuterol Sulfate), 2.5 MG NEB Q4 PRN for Wheezing (if needed) - Take the following medications as scheduled the night before surgery: Tramadol (Ultram), 50 MG PO HS Ranolazine (Ranexa), 500 MG PO QPM Simvastatin (Zocor), 80 MG PO QPM Pregabalin (Lyrica), 25 MG PO HS Paroxetine HCl (Paroxetine), 10 MG PO QPM Nitroglycerin (Nitrostat), 0.4 MG UT PRN (if needed) Metoprolol Succ (Toprol Xl) (Toprol-Xl ), 100 MG PO QPM Montelukast Sod (Montelukast Sodium), 10 MG PO QPM Isosorbide Mononitrate Ext Rel (Imdur Ext Rel), 60 MG PO QPM Ipratropium-Albuterol (Combivent Respimat), 1 PUFFS INH QID PRN for PRN (if needed) Fluticasone Prop/Salmeterol (Advair Diskus 500-50 Mcg/Dose), 1 PUFF INH BID Aspirin (Aspirin Adult Low Strengt), 81 MG PO QPM Cyclobenzaprine HCl (Cyclobenzaprine HCl), 10 MG PO HS Albuterol Sulf (Albuterol Sulfate), 2.5 MG NEB Q4 PRN for Wheezing (if needed) Amlodipine (Norvasc), 5 MG PO QPM If you have any questions please call us at [phone] or [phone] or [phone]
[2017-07-30 10:21] LABS: BASO % 0.8 %; BASO ABS # 0.06 K/uL (0-0.2); EOS % 4.5 %; EOS ABS # 0.35 K/uL (0-0.5); HEMATOCRIT 42.8 % (42-52); HEMOGLOBIN 14.1 g/dL (14.0-18.0); IG# 0.03 K/uL (0.00-0.02); LYMPH % 38.3 %; LYMPH ABS # 2.98 K/uL (1.2-3.4); MEAN CELL VOLUME 81.4 fL (80-100); MEAN CORPUSCULAR HEMOGLOBIN 26.8 pg (25-34); MEAN CORPUSCULAR HGB CONC 32.9 g/dl (32-36); MEAN PLATELET VOLUME 10.1 fL (7.4-10.4); MONO % 8.2 %; MONO ABS # 0.64 K/uL (0.11-0.59); NEUT % 47.8 %; NEUT ABS # 3.72 K/uL (1.4-6.5); PLATELET COUNT 225 K/uL (130-400); RED CELL DISTRIBUTION WIDTH SD 41.5 fL (36.4-46.3); WHITE BLOOD COUNT 7.78 K/uL (4.8-10.8)
--- NOTE | 2017-07-30 10:23 | DIAGNOSTIC IMAGING REPORT ---
CHEST 2 VIEWS ROUTINE CLINICAL HISTORY: 52 years-old Male presenting with preoperative assessment, asymptomatic. TECHNIQUE: PA and lateral views of the chest were obtained. COMPARISON: 05/21/2017.. FINDINGS: Cardiac silhouette mildly enlarged as on prior exam. Lungs and pleural spaces clear. Osseous structures normal. Upper abdomen normal. IMPRESSION: 1. Mild cardiac megaly. Otherwise no acute cardiopulmonary disease. Electronically signed by: Vega Alfred M.D. 07/30/2017 10:22 AM Dictated Date/Time: 07/30/2017 10:21 AM
[2017-07-30 10:27] LABS: PTT PATIENT 29.6 SECONDS (21.0-31.0)
[2017-07-30 12:17] LABS: CALCIUM 8.7 mg/dl (8.5-10.1); CREATININE 1.19 mg/dl (0.60-1.40); POTASSIUM 3.6 mmol/L (3.5-5.1)
--- NOTE | 2017-07-30 17:45 | HISTORY & PHYSICAL EXAMINATION ---
DATE OF ADMISSION: 07/31/2017 CHIEF COMPLAINT: Left hand numbness and tingling. HISTORY OF PRESENT ILLNESS: The patient is a 52-year-old white male presenting with left hand numbness and tingling in through all of these digits. He notes this has been ongoing now for quite a while. He notes it is progressively getting worse. He has tried splinting at that time. PAST MEDICAL HISTORY: Shortness of breath, sleep apnea, obesity, irregular heartbeat, hypertension, hyperlipidemia, headaches, fibromyalgia, depression, coronary artery disease, COPD, asthma, arthritis, angina, and history of acute [place]. PAST SURGICAL HISTORY: Hernia repair and arthrocentesis of the left elbow. ALLERGIES: No known drug allergies. CURRENT MEDICATIONS: Advair Diskus 500 mcg 1 puff by inhalation route 2 times every day in the morning and evening, albuterol sulfate 2.5 mg inhaled 3 times daily; amlodipine 5 mg, take 1 tablet by oral route every day; aspirin low dose 81 mg, take 1 tablet by oral route every day; benzonatate 100 mg, take 1 capsule by oral route 3 times every day; Combivent Respimat 20 mcg/100 mcg inhale 1 puff 4 times every day; cyclobenzaprine 10 mg, take 1 tablet by oral route every day; furosemide 40 mg, take 1 tablet by oral route every day; isosorbide mononitrate ER 60 mg, take 1 tablet by oral route every day in the morning; levofloxacin 750 mg tablets, take 1 tablet by oral route every day; losartan 50 mg tablet, take 1 tablet by oral route every day; Lyrica 25 mg, take 1 capsule by oral route every day; methylprednisolone 4 mg tablet, take 1 tablet by oral route 4 times every day; metoprolol succinate ER 100 mg, take 1 tablet by oral route every day; Nasonex spray 2 sprays by intranasal route every day, Singulair 10 mg 1 tablet by oral route every day; nitroglycerin 0.4 mg sublingual tablets, take 1 tablet by sublingual route at first line of attack; Ranexa 500 mg, take 1 tablet by oral route 2 times every day; simvastatin 80 mg 1 tablet by mouth daily; tramadol 50 mg tablet, take 1 tablet by oral route every 6 hours as needed. SOCIAL HISTORY: No tobacco use or alcohol use. REVIEW OF SYSTEMS: CARDIOVASCULAR: No chest pains or palpitations. RESPIRATORY: He notes wheezing and coughing. GASTROINTESTINAL: No nausea or vomiting. GENITOURINARY: No dysuria. PHYSICAL EXAMINATION HEART: Regular rate and rhythm. LUNGS: Bilateral wheezing. EXTREMITIES: Left positive Tinel's and positive Phalen's at the wrists, positive cubital compressions at the elbow. Negative Froment sign, negative Wartenberg's. DIAGNOSIS: Left carpal tunnel and cubital tunnel syndrome. PLAN: At this time, we will plan for a left carpal tunnel release and cubital tunnel release versus anterior transposition. Risks and benefits were discussed in the office with the patient in detail.
[~2017-07-31] VITALS: Ht 167.6 cm; Wt 130.7 kg
[~2017-07-31 09:47] MED LIST changes: +ATROPINE SULFATE 0.1 MG/ML 5ML SYR IV PRN; +CEFAZOLIN 3000MG IV PUSH 15 ML IV SCH; -EPP3/2 IM; -EZET10TA63 PO; +EpHEDrine SULFATE INJ 50 MG/ML AMP IV PRN; +FENTANYL CITRATE INJ 50 MCG/1 ML 2 ML VIAL IV PRN; -HYDR-5688 PO; +HYDROmorphone INJ 1 MG/ML SYR IV PRN; +LACTATED RINGER'S 1000ML 1,000 ML IV SCH; -MOME6000 NAE; +ONDANSETRON INJ 2 MG/ML 2 ML VIAL IV PRN; +PROMETHAZINE HCL INJ 12.5 MG in SODIUM CHLORIDE 0.9% 50ML 50 ML IV PRN; +ROPIVACAINE 0.5% 5 MG/ML 30 ML VIAL ONE
[2017-07-31 10:17] VITALS: BP 154/90; PULSE 62; TEMP 36.8; O2SAT 96; Ht 167.6 cm; Wt 130.7 kg
[2017-07-31] MEDS ORDERED: MIDAZOLAM HCL 1 MG/ML 2ML VIAL ONE (10:40)
[2017-07-31] MEDS ORDERED: ONDANSETRON INJ 2 MG/ML 2 ML VIAL ONE (10:40)
[2017-07-31] MEDS ORDERED: LIDOCAINE HCL 2% 2 ML VIAL (20MG/ML) ONE (10:40)
[2017-07-31] MEDS ORDERED: FENTANYL CITRATE INJ 50 MCG/1 ML 2 ML VIAL ONE (10:40)
[2017-07-31] MEDS ORDERED: PROPOFOL IV EMULSION 10 MG/ML 20 ML VIAL IV ONE (10:40)
[2017-07-31] MEDS ORDERED: BUPIVACAINE 0.5 % 5 MG/1 ML MPF 30ML VIAL ONE (11:51)
[2017-07-31] MEDS ORDERED: EpHEDrine SULFATE INJ 50 MG/ML AMP ONE (12:22)
--- NOTE | 2017-07-31 12:49 | [facility] Post Operative Brief Note ---
Immediate Operative Summary Operative Date Jul 31, 2017. Pre-Operative Diagnosis Left carpal tunnel and cubital tunnel syndrome. Post-Operative Diagnosis Left carpal tunnel and cubital tunnel syndrome. Procedure(s) Performed Left elbow cubital tunnel release, left wrist carpal tunnel release Surgeon Dr. Christopher Field Coil Winder Surgeon(s) none Estimated Blood Loss 5 cc Findings Consistent with Post-Op Diagnosis Specimens none per surgeon Drains None Anesthesia Type General Complication(s) none Disposition Disposition: Recovery Room / PACU
--- NOTE | 2017-07-31 12:59 | Discharge Instructions ---
Discharge Instructions Date of Service Jul 31, 2017. Admission Reason for Admission: Left Wrist/Elbow Cubital Tunnel Syndrome Discharge Discharge Diagnosis / Problem: carpal and cubital tunnel Discharge Goals Goal(s): Decrease discomfort Activity Recommendations Activity Limitations: per Instructions/Follow-up section Exercise/Sports Limitations: rest today Shower/Bathe: keep incision dry (may shower in 5 days and get incisions wet) Driving or Machine Use: no driving Weightbearing Status: Left weightbearing (as tolerated), Right weightbearing ( as tolerated) . Current Hospital Diet Patient's current hospital diet: Regular Diet Discharge Diet Recommended Diet: Regular Diet Procedures Procedures Performed: Left elbow cubital tunnel release, left wrist carpal tunnel release Pending Studies Studies pending at discharge: no Medical Emergencies . Who to Call and When: Medical Emergencies: If at any time you feel your situation is an emergency, please call 911 immediately. . Non-Emergent Contact Non-Emergency issues call your: Primary Care Provider Call Non-Emergent contact if: temperature is above 101.5 UOC : Hand /Wrist Instr. ACTIVITY RECOMMENDATIONS: Avoid lifting anything until your first post-operative visit. Keep your hand elevated above the level of your heart at all times. Elbow should be above the level of the heart, and hand kept above the elbow. ~ You may use a sling if necessary. Ice the affected extremity a minimum of 3-4 times a day, 20 minutes each time. SPECIAL CARE INSTRUCTIONS: * Your bandage should be left in place until seen in the office. * Some drainage onto the dressing may occur.~ This is normal. * If the bandage feels excessively tight, you may loosen the elastic bandage.~ Then call the physician's office for further instructions. * You should move your fingers regularly, making a fist and extending them, unless otherwise instructed. SPECIAL PRECAUTIONS: * If you notice increased drainage, fever over 101 degrees F. or severe, unremitting pain, call your physician/office at . * You may have been prescribed pain medication.~ If you experience nausea and/ or skin rash, discontinue this medication and contact our office for an alternative medication. Pain Medication: a. You will be prescribed pain medication upon discharge that should last till your first post-operative appointment. b. You may also take Advil, Ibuprofen or Aleve between medication doses if you do not have any contraindication to taking them. c. You may also take Advil, Ibuprofen, Aleve or Tylenol in place of your pain medication if the pain is tolerable. FOLLOW UP VISIT: If appointment is not already scheduled: Please call [facility] to make a follow-up appointment after your surgery at . Follow up appointment with Dr. Christopher or his PA: 10-14 days Follow up appointment with Certified Hand Therapist at [facility] 3-5 days may remove dressings in 5 days. apply a bandaid to the wrist and reapply a dry sterile dressing to the elbow "Provider Documentation" section prepared by Gelacio Cleveland. . VTE Core Measure Inpt VTE Proph given/why not?: Contraindicated [place] Drug Monitoring Program Search Results: patient reviewed within database
[2017-07-31] MEDS ORDERED: ACETAMINOPHEN 325 MG TAB PO PRN (13:00)
[2017-07-31] MEDS ORDERED: MoRPHine SULFATE 4 MG/ML 1 ML CARP\\VIAL IV PRN (13:00)
[2017-07-31] MEDS ORDERED: ONDANSETRON INJ 2 MG/ML 2 ML VIAL IV PRN (13:00)
[2017-07-31] MEDS ORDERED: OXYCODONE/ACETAMINOPHEN 5-325 TAB PO PRN (13:00)
--- NOTE | 2017-07-31 13:34 | Anesthesiology Progress Note ---
Anesthesia Post Op Note Date & Time Jul 31, 2017 at 13:34 Vital Signs Pain Intensity: 0 Vital Signs Past 12 Hours Date Time Temp Pulse Resp B/P (MAP) Pulse Ox O2 Delivery O2 Flow Rate FiO2 07/31/17 13:31 101/82 07/31/17 13:27 63 18 94 07/31/17 13:27 62 18 07/31/17 13:26 121/81 07/31/17 13:23 36.8 62 16 121/81 (100) 100 Room Air 07/31/17 13:22 65 13 07/31/17 13:22 72 13 100 07/31/17 13:21 120/80 07/31/17 13:17 59 12 100 07/31/17 13:17 58 12 07/31/17 13:16 122/78 07/31/17 13:12 60 13 100 07/31/17 13:12 60 13 07/31/17 13:11 60 14 119/87 100 07/31/17 13:11 61 14 07/31/17 13:09 122/87 07/31/17 13:05 58 14 174/103 100 07/31/17 12:56 37.0 58 14 150/99 96 07/31/17 10:17 36.8 62 18 154/90 (111) 96 Room Air Notes Mental Status: alert / awake / arousable, participated in evaluation Pt Amnestic to Procedure: Yes Nausea / Vomiting: adequately controlled Pain: adequately controlled Airway Patency, RR, SpO2: stable & adequate BP & HR: stable & adequate Hydration State: stable & adequate Anesthetic Complications: no major complications apparent
[2017-07-31 13:45] VITALS: BP 130/84; PULSE 66; TEMP 36.7; O2SAT 92
[2017-07-31 14:15] VITALS: BP 139/72; PULSE 66; TEMP 36.4; O2SAT 96
--- NOTE | 2017-07-31 20:46 | OPERATIVE REPORT ---
DATE OF OPERATION: 07/31/2017 DICTATED BY: Jerome Christopher MD. PREOPERATIVE DIAGNOSES: Left cubital tunnel syndrome and left carpal tunnel syndrome. POSTOPERATIVE DIAGNOSES: Left cubital tunnel syndrome and left carpal tunnel syndrome. PROCEDURES: 1. Left cubital tunnel release, in situ. 2. Left carpal tunnel release. SURGEON: Jerome Christopher MD COMPLICATIONS: None. EPIC INTERFACE ANALYST: None. ANESTHESIOLOGIST: ANESTHESIA: General. INDICATIONS: The patient has a nerve conduction study and clinical exam consistent with carpal tunnel and cubital tunnel syndrome, and has failed conservative treatment. The patient presents electively for cubital tunnel release after discussion of risks and benefits. Risks have been discussed including, but not limited to risk of infection, risk of nerve injury, risk of failure to improve, risk of recurrence, risk of anesthesia complications, stiffness of the wrist, etc. The patient is agreeable and wishes to proceed. FINDINGS: Moderate to severe compression of the median nerve in the carpal tunnel. Moderate to severe compression of the ulnar nerve in the cubital tunnel. No subluxation of the ulnar nerve. OPERATIVE PROCEDURE: The patient was identified. The proper procedure and site was verified. A surgical time out was taken and observed. The patient was given perioperative antibiotics prior to the skin incision. After administration of local anesthetic, the patient's left arm was prepped and draped in the usual sterile fashion. I then made an incision directly in line with the fourth ray just ulnar to the palmaris longus tendon. Dissection was carried down through the skin and subcutaneous tissues. Hemostasis was obtained with bipolar electrocautery. The superficial fascia layer was identified. This was transected with scissors. I then identified the transverse carpal ligament and this was sharply incised just ulnar to the median nerve. This incision was then carried to the proximal level of visualization. I then spread above and below the transverse carpal ligament and a meniscotome was used to complete the transection of the transverse carpal ligament 1 cm proximal to the proximal wrist crease. This was verified as completely released under direct vision. I then completed the release of the transverse carpal ligament distally to the level of the fat stripe and this was also verified as being completely released. The carpal tunnel was inspected. There was no evidence of space occupying lesion in the carpal tunnel. The median nerve was inspected and the motor branch takeoff was noted out of the direct surgical field and free from harm. The patient's left cubital tunnel was approached with a longitudinal incision directly over the cubital tunnel approximately 2-3 cm in length. Dissection was carried down through the skin and subcutaneous tissues. Branches of the medial antebrachial cutaneous nerves were identified. These were retracted free. The ulnar nerve was identified just proximal to the medial epicondyle and this was dissected meticulously. The cubital tunnel was then released, releasing Ellington ligament and Ellington fascia. I released the ulnar nerve into the 2 heads of the FCU tendon and I carried the dissection proximally to the limits of visualization. I placed the elbow through range of motion. There was no evidence of subluxation of the ulnar nerve, so I chose to not anteriorly transpose the nerve. There was visible compression noted in the area of the cubital tunnel. No evidence of anomalous muscle noted. The incision was irrigated. The tourniquet was let down. Hemostasis was obtained with bipolar electrocautery and subcutaneous layer was closed with 4-0 Monocryl. A 4-0 Monocryl running subcuticular stitch was used on the skin. Steri-Strips were applied. A dry, sterile dressing was applied. The patient was sent to the PACU in stable condition. The hand was warm and well-perfused at the end of the case. I discussed the results of the procedure with the patient and family. I attest to the content of the Intraoperative Record and any orders documented therein. Any exceptions are noted below. I attest to the content of the Intraoperative Record and any orders documented therein. Any exceptions are noted below. RUI
== END 2017-07-31 14:30 | disposition home or self-care (01) ==
LOC: C.ACU 09:47
PROVIDERS: ATTEND Orthopaedic Surgery
DX: G56.02 Carpal tunnel syndrome, left upper limb (principal); G56.22 Lesion of ulnar nerve, left upper limb; G47.30 Sleep apnea, unspecified; E66.01 Morbid (severe) obesity due to excess calories; I10 Essential (primary) hypertension; E78.5 Hyperlipidemia, unspecified; I25.10 Atherosclerotic heart disease of native coronary artery without angina pectoris; J44.9 Chronic obstructive pulmonary disease, unspecified; M19.90 Unspecified osteoarthritis, unspecified site; I25.2 Old myocardial infarction; E78.00 Pure hypercholesterolemia, unspecified; R00.2 Palpitations; F41.9 Anxiety disorder, unspecified

== ENCOUNTER → 2017-09-21 | Outpatient (CLI) | payer OTHER ==
[~2017-09-21] MED LIST changes: -ATROPINE SULFATE 0.1 MG/ML 5ML SYR IV PRN; -CEFAZOLIN 3000MG IV PUSH 15 ML IV SCH; -EpHEDrine SULFATE INJ 50 MG/ML AMP IV PRN; -FENTANYL CITRATE INJ 50 MCG/1 ML 2 ML VIAL IV PRN; -HYDROmorphone INJ 1 MG/ML SYR IV PRN; -LACTATED RINGER'S 1000ML 1,000 ML IV SCH; -ONDANSETRON INJ 2 MG/ML 2 ML VIAL IV PRN; +OPTIRAY 320 IV PRN; -PROMETHAZINE HCL INJ 12.5 MG in SODIUM CHLORIDE 0.9% 50ML 50 ML IV PRN; -ROPIVACAINE 0.5% 5 MG/ML 30 ML VIAL ONE
--- NOTE | 2017-09-21 13:46 | DIAGNOSTIC IMAGING REPORT ---
CHEST CT WITH CONTRAST CT DOSE: 652.63 mGycm HISTORY: Follow-up study in a patient with pulmonary nodules R91.8 Abnormal chest x-ray with multiple lung [id number] Lung TECHNIQUE: Multiaxial CT images of the chest were performed following the intravenous administration of contrast. A dose lowering technique was utilized adhering to the principles of ALARA. COMPARISON: Chest radiograph 07/20/2017, CTA chest 01/19/2017. FINDINGS: Thyroid is homogeneous. No pathologic adenopathy identified. Heart is normal in size with coronary arterial disease. Thoracic aorta is normal in both course and caliber without aneurysm or dissection identified. The opacified pulmonary arterial tree is within normal limits. There is no pneumothorax or pleural effusion identified. There is mild dependent subsegmental bibasilar atelectasis. Linear subsegmental opacity of the inferior segment lingula suggest atelectasis or scarring. No focal airspace consolidation to suggest pneumonia. 2 mm subpleural nodule of the basal left lower lobe on image 206 series 4 is likely benign. 5 mm solid nodule of the right lower lobe, image 135 series 4 appears unchanged. No new or enlarging pulmonary nodules identified. Previously noted nodule within the medial segment right middle lobe adjacent to the fissure is no longer identified. Nodule within the right upper lobe previously described also appears to have resolved. Previously described groundglass nodule of the left upper lobe anterior segment not identified. Suggested fatty infiltration of the liver. No acute process of the imaged upper abdomen. Soft tissues are within normal limits. The bones appear intact. Multilevel endplate spurring about the spine. IMPRESSION: 1. No acute intrathoracic abnormality identified. 2. Several of the previously described pulmonary nodules have resolved in the interval. 5 mm solid pulmonary nodule of the right lower lobe is unchanged. No new or enlarging nodules identified. 3. No pathologic adenopathy or focal airspace consolidation. Please refer to below summary of Fleischner criteria recommendations for follow-up of incidental CT nodules (Majo Nash, Guidelines for management of small pulmonary nodules detected on CT scans: A statement from the Fleischner Society, Radiology 237: [phone].) SOLID NODULES Multiple nodules size: <6 mm * Low risk patients: no routine follow-up * high risk patients: optional CT at 12 months Note: newly detected indeterminate nodule in persons 35 years of age or older. * Low risk patients: minimal or absent history of smoking and/or other known risk factors * high risk patients: history of smoking or of other known risk factors (e.g. first degree relative with lung cancer, or exposure to asbestos, radon, uranium) * if a nodule up to 8 mm is partly solid or is ground glass further follow-up is required after 24 months to exclude possible slow growing adenocarcinoma (TAM) The above report was generated using voice recognition software. It may contain grammatical, syntax or spelling errors. Electronically signed by: Neil Harper M.D. 09/21/2017 1:45 PM Dictated Date/Time: 09/21/2017 1:36 PM
== END | disposition home or self-care (01) ==
LOC: C.CTS 13:00
PROVIDERS: ATTEND Physician Assistant
DX: R91.1 Solitary pulmonary nodule (principal); R91.8 Other nonspecific abnormal finding of lung field